=== PATIENT | male | born 1990 ===

== ENCOUNTER 2024-03-10 23:04 | Emergency (ER) | payer MEDICAID, OTHER, SELFPAY ==
--- NOTE | ~2024-03-10 | XR_ITS ---
EXAMINATION: XR CHEST CLINICAL INFORMATION: cough COMPARISON: None available. TECHNIQUE: 2 views of the chest were obtained. FINDINGS: No significant abnormality is noted involving the heart, lungs, mediastinum, bony thorax or soft tissues. XR/XR chest 2V IMPRESSION: Unremarkable examination. Electronically signed by: Fadi Umanzor MD 03/11/2024 12:10 AM [facility] [place]
[2024-03-10 23:25] VITALS: BP 112/63; PULSE 82; RESP 16; TEMP 36.2; O2SAT 98; BMI 33.4
[2024-03-11 00:28] LABS: IDNOW Serial# 6674DD1D; Strep A Nucleic Acid Negative (Negative)
[2024-03-11 00:39] LABS: IDNOW Serial# 58CA691E; Influenza A Negative (Negative); Influenza B2 Negative (Negative)
[2024-03-11 00:40] LABS: COVID-19 Test Negative (Negative); IDNOW Serial# 6674DD1D
--- NOTE | 2024-03-11 02:55 | ED.URI ---
HPI - URI/Sore Throat General Chief Complaint: Upper Respiratory Symptoms Stated Complaint: sore throat, difficulty breathing Time Seen by Provider: 03/11/24 02:37 Source: patient Mode of arrival: ambulatory Limitations: no limitations History of Present Illness ED Provider: HPI Narrative: Patient's [place]ian speaking comes here for sore throat dry cough for last 2 days no other significant past medical history noted to be wheezing when he arrived no fever no chills Related Data Previous Rx's ?Medication ?Instructions ?Recorded albuterol sulfate 90 mcg/actuation 2 puff inhalation Q6H PRN 03/11/24 aerosol inhaler shortness of breath or wheezing #8.5 grams cefuroxime axetil 500 mg tablet 500 mg PO BID 7 days #14 tabs 03/11/24 prednisone 20 mg tablet 40 mg (2 x 20 mg) PO DAILY #10 tabs 03/11/24 Allergies Allergy/AdvReac Type Severity Reaction Status Date / Time No Known Allergies Allergy Verified 03/10/24 23:26 Review of Systems Review of Systems: Yes all other systems are reviewed and are negative [facility] Social History Social History Alcohol intake: never Smoked in Last 30 Days: No Use of substances other than those prescribed or required for medical reasons: No Advance Directives: No Do you have a plan to hurt others: No Plan Physical Exam Vital Signs: Vital Signs: Last Vital Signs Temp 98.2 F 03/11/24 03:30 Pulse 71 03/11/24 03:30 Resp 18 03/11/24 03:30 BP 123/82 03/11/24 03:30 Pulse Ox 96 03/11/24 03:30 O2 Del Method Room Air 03/11/24 03:30 BMI result Body Mass Index 33.4 Appearance: Alert. Oriented X3. No acute distress. ENT: Pharynx normal. Oral Mucosa moist Neck: Normal inspection. Neck supple. CVS: Normal heart rate and rhythm. Pulses normal. Respiratory: No respiratory distress. Equal air entry bilateral, bilateral wheezing no crackles Skin: Skin warm and dry. Normal skin color. Normal skin turgor. Extremities: No lower extremity edema. Neuro: Oriented X 3. Medications Administered Discontinued Medications Generic Name Dose Route Start Last Admin Trade Name Freq PRN Reason Stop Dose Admin Albuterol Sulfate 2 puff 03/11/24 03:05 03/11/24 03:17 Albuterol Sulfate 90 Mcg 8 Gm Inhaler INHALE 03/11/24 03:06 2 puff ONCE ONE Administration Cefuroxime Axetil 500 mg 03/11/24 03:05 03/11/24 03:17 Cefuroxime Axetil 500 Mg Tablet PO 03/11/24 03:06 500 mg ONCE ONE Administration Prednisone 40 mg 03/11/24 03:05 03/11/24 03:17 Prednisone 20 Mg Tablet PO 03/11/24 03:06 40 mg ONCE ONE Administration Medical Decision Making Medical Decision Making MDM Narrative: Patient has acute bronchitis chest x-ray COVID flu RSV negative strep prescribed cefuroxime and albuterol inhaler Lab Data [facility] Lab Attestation statement: I reviewed the patient's lab results. Labs: Lab Results 03/10/24 Range/Units 23:58 COVID-19 (MARYELLEN) Negative (Negative) COVID-19 Clin Com See Note Influenza Type A (MICHELET) Negative (Negative) Influenza Type B (MICHELET) Negative (Negative) Influenza A & B Note See Note S. pyogenes GrpA MICHELET Negative (Negative) Independent Interpretation I performed an independent interpretation of an: Plain X-Ray Interpretation: NAD Radiology Impression Discussion of test interpretation with radiology: I have reviewed the radiologist's reading. Radiologist Impression: [place] [id number] XRay Report Signed Patient: Ajay Ramirez MR#: [id number] : 1990 Acct:[id number] Age/Sex: 33 / M ADM Date: 03/10/24 Loc: .ED Attending Dr: Ordering Physician: Generic ED Physician Date of Service: 03/10/24 Procedure(s): XR chest 2V Accession Number(s): [id number] cc: Generic ED Physician; Physician,None ~ EXAMINATION: XR CHEST CLINICAL INFORMATION: cough COMPARISON: None available. TECHNIQUE: 2 views of the chest were obtained. FINDINGS: No significant abnormality is noted involving the heart, lungs, mediastinum, bony thorax or soft tissues. XR/XR chest 2V IMPRESSION: Unremarkable examination. Electronically signed by: aFdi Umanzor MD 03/11/2024 12:10 AM [facility] Discharge Plan Discharge Clinical Impression: Bronchitis Patient Disposition: Home, Self-Care Instructions: Acute Bronchitis (ED) Additional Instructions: Take antibiotic and prednisone as prescribed Albuterol inhaler 2 puffs every 4-6 hours as needed for wheezing and shortness a breath Drink plenty of fluids Follow with your PCP Prescriptions: New prednisone 20 mg tablet 40 mg PO DAILY Qty: 10 0RF cefuroxime axetil 500 mg tablet 500 mg PO BID 7 Days Qty: 14 0RF albuterol sulfate 90 mcg/actuation HFA aerosol inhaler 2 puff inhalation Q6H PRN (Reason: shortness of breath or wheezing) Qty: 8.5 0RF Interventions: ED Discharge Assessment Last Done: 03/11/24 03:30 Discharge Date/Time: 03/11/24 03:32 Print Language: Serbian
[2024-03-11 03:06] VITALS: BP 123/82; PULSE 71; RESP 18; TEMP 36.8; O2SAT 96
[2024-03-11] MEDS: cefuroxime axetiL 500 MG TABLET PO (03:17)
[2024-03-11] MEDS: Albuterol Sulfate 90 MCG 8 GM INHALER 2 PUFF INHALE (03:17)
[2024-03-11] MEDS: predniSONE 20 MG TABLET 40 MG PO (03:17)
[2024-03-11 03:30] VITALS: BP 123/82; PULSE 71; RESP 18; TEMP 36.8; O2SAT 96
== END 2024-03-11 03:32 | disposition home or self-care (01) ==
PROVIDERS: Emergency Provider Internal Medicine
DX: J40 Bronchitis, not specified as acute or chronic (principal); J02.9 Acute pharyngitis, unspecified; R06.02 Shortness of breath; R05.9 Cough, unspecified; Z11.52 Encounter for screening for COVID-19; Z79.899 Other long term (current) drug therapy
CPT/HCPCS: 71046; 87502; 87635; 87651; 99284

== ENCOUNTER 2024-11-05 19:57 | Emergency (ER) | payer MEDICAID, OTHER, SELFPAY ==
--- NOTE | ~2024-11-05 | XR_ITS ---
CLINICAL HISTORY: cough 2 views of the chest. Comparison 03/10/2024. Findings: Heart size is normal. There is no consolidation. No pleural effusion is seen. Impression: No consolidation. This document has been electronically signed by: Renny Melgar MD on 11/05/2024 21:09:48
--- NOTE | 2024-11-05 20:21 | ED_ITS ---
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 Winn HPI narrative: 34-year-old [place]ian male came in for evaluation of sore throat, headache, facial pressure, coughing. Headache improve if he have a runny nose, history of exposure to a sick friend. No recent travel, no photophobia, no neck stiffness, no subjective fever. No history of smoking, no history of drug use. Related Data Previous Rx's ?Medication ?Instructions ?Recorded albuterol sulfate 90 mcg/actuation 2 puff inhalation Q 6H PRN 03/11/24 aerosol inhaler shortness of breath or wheez ing #8.5 grams cefuroxime axetil 500 mg tablet 500 mg PO BID 7 days # 14 tabs 03/11/24 prednisone 20 mg tablet 40 mg (2 x 20 mg) PO DAILY # 10 tabs 03/11/24 amoxicillin 875 mg-potassium 1 tab PO BID #20 tabs 08/26 clavulanate 125 mg tablet guaifenesin 1,200 mg tablet, 1,200 mg PO BID #20 tabs 11/06/24 extended release 12 hr (Mucinex) prednisone 20 mg tablet 20 mg PO BID #10 tabs Allergies Allergy/AdvReac Type Severity Reaction Status Date / Time No Known Allergies Allergy Verified 11/05/24 20:29 Review of Systems Review of Systems: All other systems are reviewed and are negative Constitutional: Reports as per HPI and Reports no additional constitutional complaints Eyes: Reports as per HPI and Reports no additional eye complaints Reports system reviewed and no additional complaints, except as documented Cardiovascular: Reports as per HPI and Reports no additional cardiovascular complaints Respiratory: Reports as per HPI and Reports no additional respiratory complaints Gastrointestinal: Reports as per HPI and Reports no additional gastrointestinal complaints Genitourinary: Reports no additional female genitourinary complaints Musculoskeletal: Reports no additional musculoskeletal complaints Skin/Breast: Reports system reviewed and no additional complaints, except as docu Psychiatric: Reports no additional psychiatric complaints Endocrine: Reports no additional endocrine complaints Hematologic/Lymphatic: Reports no additional hematologic/lymphatic complaints Allergic/Immunologic: Reports no additional allergic/immunologic complaints Reports system reviewed and no additional complaints, except as documented and Reports Abnormal speech present [facility] Social History Social History Alcohol intake: never Smoked in Last 30 Days: No Use of substances other than those prescribed or required for medical reasons: No Advance Directives: No Advance Directives Information Provided: No Do you have a plan to hurt others: No Plan Physical Exam ED Vital Signs: Vital Signs - 24 hr 11/05/24 20:24 11/06/24 00:28 11/06/24 00:28 Temperature 98.1 F 97.6 F Pulse Rate 90 74 Respiratory Rate 18 16 Blood Pressure 113/74 111/77 Pulse Oximetry 97 97 97 Oxygen Delivery Method Room Air Room Air Room Air BMI result Body Mass Index 28.9 Vital signs have been reviewed and appear to be correct. Blood pressure elevated. Heart rate normal. Respiratory rate normal. Temperature normal. Oxygen saturation normal. Appearance: Alert. Oriented X3. No acute distress. Head: Normal external exam. Normocephalic. Atraumatic. No Jorge signs noted. No raccoon eyes noted Eyes: PERRLA. EOMI. Conjunctiva and sclera normal. Eyelids normal. ENT: TM's Normal. +pharyngeal erythema, + tenderness over maxillary sinus bilaterally with percussion, purulent nasal discharge was noted, Uvula mid 9, patent airway, no stridor. Neck: Normal inspection. Neck supple. FROM. No adenopathy. Thyroid Normal. No meningeal signs. No neck mass noted. CVS: Normal heart rate and rhythm. Heart sound normal. No murmurs noted. Pulses normal throughout. Respiratory: No respiratory distress. Painless inspiration. Breath sounds normal. No wheezes/rales/rhonchi noted. Chest nontender. No accessory muscle usage noted or decreased air movement noted. Abdomen: Soft and nontender. Bowel sounds normal in all 4 quadrants. No d istention noted. No organomegaly noted. No visible injury noted. Back: No CVA tenderness. Full range of motion noted. Skin: Skin warm and dry. Normal skin color. Normal skin turgor. No rashes/l esions/lacerations noted. Extremities: No lower extremity edema. Extremities exhibit normal range of motion. Extremities nontender. Neuro: Oriented X 3. Cranial nerve exam: II-XII are grossly intact No motor deficit. No sensory deficit. Reflexes normal. Course Course Course Narrative: RME performed by Liana Kwon PA-C. Patient is a 34 year old assigned male at presenting to the emergency department with sinus swelling and a cough. Detailed physical exam and review of systems are deferred to the threading machine tender. Swabs ordered. Patient placed back in the waiting room pending room availability and results. 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 Will start the patient on prednisone and Augmentin. Time: 01:43 Medical Decision Making Differential Diagnosis Differential Diagnoses: The differential diagnosis associated with the presentation includes ( Sinusitis, pharyngitis, viral upper respiratory infection, meningitis (less likely ).) Admission/Observation Consideration of admission/observation: Escalation of care including admission/observation considered Lab Data MDM Lab Attestation statement: I reviewed the patient's lab results. Labs: Lab Results 11/05/24 Range/Units 20:45 Influenza Type A (PCR) NEGATIVE (Negative) Influenza Type B (PCR) NEGATIVE (Negative) RSV RNA Qual (PCR) NEGATIVE (Negative) SARS-CoV-2 RNA (RT-PCR) NEGATIVE (Negative) Discharge Plan Discharge Clinical Impression: Acute maxillary sinusitis Patient Disposition: Home, Self-Care Instructions: Sinusitis (ED) Additional Instructions: come back to the ER if your symptoms is not better. Prescriptions: New amoxicillin-pot clavulanate 875-125 mg tablet 1 tab PO BID Qty: 20 0RF prednisone 20 mg tablet 20 mg PO BID Qty: 10 0RF guaifenesin [Mucinex] 1,200 mg tablet extended release 12hr 1,200 mg PO BID Qty: 20 0RF No Action prednisone 20 mg tablet 40 mg PO DAILY Qty: 10 0RF cefuroxime axetil 500 mg tablet 500 mg PO BID 7 Days Qty: 14 0RF albuterol sulfate 90 mcg/actuation HFA aerosol inhaler 2 puff inhalation Q6H PRN (Reason: shortness of breath or wheezing) Qty: 8.5 0RF Print Language: Arabic
[2024-11-05 20:24] VITALS: BP 113/74; PULSE 90; RESP 18; TEMP 36.7; O2SAT 97; BMI 28.9
[2024-11-05 21:26] LABS: Resp Syncy Virus RNA Qual PCR NEGATIVE (Negative); SARS COV2 PCR INHOUSE NEGATIVE (Negative)
[2024-11-06 00:28] VITALS: BP 111/77; PULSE 74; RESP 16; TEMP 36.4; O2SAT 97
[2024-11-06] MEDS: guaiFENesin LA 600 MG TAB.ER.12H PO (01:46)
--- NOTE | 2024-11-06 01:48 | PC.NURSE ---
RN used stratus bag worker for Kazakh language to conduct nursing assessment at the bed side. Assessment was successful.
[2024-11-06 01:56] VITALS: BP 111/77; PULSE 74; RESP 16; TEMP 36.4; O2SAT 97
== END 2024-11-06 01:56 | disposition home or self-care (01) ==
PROVIDERS: Physician Assistant Medical; Emergency Provider Emergency Medicine
DX: J01.00 Acute maxillary sinusitis, unspecified (principal); R51.9 Headache, unspecified; R09.89 Other specified symptoms and signs involving the circulatory and respiratory systems
CPT/HCPCS: 71046; 87637; 99283; 99284

== ENCOUNTER → 2024-11-05 20:30 | Outpatient (BNV) | payer MEDICAID, SELFPAY | PROVIDERS: Visit Provider Radiology Diagnostic Radiology | DX: R05.9 Cough, unspecified (principal) | CPT/HCPCS: 71046 ==